=== PATIENT | female | born 1945 | race Caucasian/White ===

== ENCOUNTER 2020-01-30 10:32 | Day surgery (SDC) | payer OTHER | END 2020-01-30 14:43 | disposition home or self-care (01) | LOC: AMB-ENDOS 10:32 | PROVIDERS: ATTEND Surgery | DX: K62.89 Other specified diseases of anus and rectum (principal); Z20.828 Contact with and (suspected) exposure to other viral communicable diseases ==

== ENCOUNTER 2020-04-14 09:30 | Inpatient (IN) | payer OTHER ==
[~2020-04-14] VITALS: Ht 154.9 cm; Wt 59.0 kg
[2020-04-14] MEDS ORDERED: FORTAMET500 MG PO (14:04)
[2020-04-14] MEDS ORDERED: DEPAKO PO (14:04)
[2020-04-14] MEDS ORDERED: CALCI PO (14:05)
[2020-04-14] MEDS ORDERED: SYNTH PO (14:05)
[2020-04-14] MEDS ORDERED: COZ PO (14:06)
[2020-04-14] MEDS ORDERED: LIPIT PO (14:06)
[2020-04-21] MEDS ORDERED: SYNTHROID50 MCG (08:03)
[2020-04-21] MEDS ORDERED: LOSARTAN POTASS25 MG (08:03)
[2020-04-21] MEDS ORDERED: DIVALPROEX SOD500 MG (08:03)
[2020-04-21] MEDS ORDERED: GABAPENTIN400 MG (08:03)
[2020-04-21] MEDS ORDERED: ATORVASTATIN CA10 MG (08:03)
[2020-04-21] MEDS ORDERED: CALCIUM500 M1 (08:04)
[2020-04-23] MEDS ORDERED: ULTRAM50 MG PO (13:04)
[2020-04-23] MEDS ORDERED: LEVSIN/SL0.125 MG SL (13:05)
[2020-04-23] MEDS ORDERED: INTESTINEX680 M1 PO (13:05)
== END 2020-04-23 13:58 | disposition home or self-care (01) | DRG 331 ==
LOC: O/R 04-20 07:14 → SURG 04-20 07:14 → SURH 04-20 09:30 → SURG 04-20 14:19 → SURH 04-20 14:45 → SURG 04-23 13:58
PROVIDERS: ADMIT Surgery; ATTEND Surgery
PROC: 0DJD8ZZ Inspection of Lower Intestinal Tract, Via Natural or Artificial Opening Endoscopic (ICD-10-PCS; 2020-04-20)
PROC: 0DBN4ZZ Excision of Sigmoid Colon, Percutaneous Endoscopic Approach (ICD-10-PCS; principal; 2020-04-20 14:45)
DX: K57.32 Diverticulitis of large intestine without perforation or abscess without bleeding (principal); E78.5 Hyperlipidemia, unspecified; E11.9 Type 2 diabetes mellitus without complications; Z79.4 Long term (current) use of insulin

== ENCOUNTER 2021-04-22 06:05 | Day surgery (SDC) | payer OTHER ==
[~2021-04-22 06:05] MED LIST: ATORVASTATIN CA10 MG; CALCI PO; CALCIUM500 M1; COZ PO; DEPAKO PO; DIVALPROEX SOD500 MG; FORTAMET500 MG PO; GABAPENTIN400 MG; INTESTINEX680 M1 PO; LEVSIN/SL0.125 MG SL; LIPIT PO; LOSARTAN POTASS25 MG; SYNTH PO; SYNTHROID50 MCG; ULTRAM50 MG PO
== END 2021-04-22 10:00 | disposition home or self-care (01) ==
LOC: AMB-ENDOS 06:05
PROVIDERS: ATTEND Surgery
DX: K57.30 Diverticulosis of large intestine without perforation or abscess without bleeding (principal)